=== PATIENT | female | born 1960 | race Caucasian/White ===

== ENCOUNTER 2017-02-12 19:00 | Inpatient (IN) | payer MEDICARE ==
--- NOTE | ~2017-02-12 | PN ---
Unit #: [id number] #: [id number] Patient: NA DE DIOS [id number] [facility] [address] [place] [address] [id number] I MR#: [id number] NAME: NA DE DIOS [facility] Age: 56 Sex: F Admission Date: 02/12/2017 : 1960 Attending Physician: Kendall Padron M.D. Admitting Physician: Kendall Padron M.D. Primary Care Physician: Primary Care Physician Char HERRERA NOTES DATE OF SERVICE: 02/15/2017 DISCUSSION Ms. Na Quinones is a 56-year-old female, seen on 02/15/2017. The patient interviewed, chart reviewed, and obtained information from nursing staff. The patient is compliant and cooperative. Reports medication is helping her. Denied any suicidal or homicidal ideation. Still withdrawn, isolative, guarded. Compliant with medication. No side effects from medication. REVIEW OF SYSTEMS Complete review of systems unremarkable. MENTAL STATUS EXAMINATION General appearance, the patient dressed appropriately. Attention span and concentration, fair. Oriented in time, place, and person. Mood and affect, labile. Speech, regular rate. Thought process, goal directed. The patient denied any thoughts of harming self or others, but guarded, isolative. Recent and remote memory, fair to poor. Insight and judgment, fair to poor. DIAGNOSIS Bipolar mood disorder, recurrent, severe, depressed, F31.9. ASSESSMENT/PLAN Advised to continue with current medication and therapeutic protocol. If needed, consider further adjustment of medication. Dictated by... Mery Castrejon/dee TD: 02/15/2017 23:57 JOB #: [id number] Unit #: [id number] #: [id number] Patient: NA DE DIOS PROGRESS NOTES Page 1 of 1 X Kendall Padron MD PROGRESS NOTE
--- NOTE | ~2017-02-12 | PN ---
Unit #: [id number] #: [id number] Patient: NA DE DIOS [id number] [facility] [address] [place] [address] [id number] I MR#: [id number] NAME: NA DE DIOS ROOM: [facility] Age: 56 Sex: F Admission Date: 02/12/2017 : 1960 Attending Physician: Kendall Padron M.D. Admitting Physician: Kendall Padron M.D. Primary Care Physician: Primary Care Physician Char ANNE PROGRESS NOTES DATE 02/13/2017 DISCUSSION Ms. Na De Dios is a 56-year-old female, seen on 02/13/2017. The patient interviewed, chart reviewed, and obtained information from the nursing staff. The patient was compliant and cooperative. Mood sad and dysphoric, flat affect, sad and depressed, feelings of hopelessness, worthlessness, isolative. REVIEW OF SYSTEMS Complete review of systems unremarkable. MENTAL STATUS EXAMINATION General appearance: Patient dressed casually. Attention span and concentration, poor. Oriented in time, place, and person. Mood and affect, sad and depressed. Speech, monotone. Thought process, concrete. The patient reported having suicidal ideations, anxiety, panic attack. Recent and remote memory, poor. Insight and judgment, poor. DIAGNOSES 1. Major depressive disorder, recurrent. 2. Anxiety disorder, NOS. ASSESSMENT/PLAN Advised to continue with the current medication combination, Lamictal 400 mg daily, Wellbutrin XL 300 mg in the morning, Seroquel 200 mg at bedtime, Klonopin 1 mg three times a day, Vistaril p.r.n., if needed consider further adjustment of medication. Will continue to follow. Dictated by... Mery Castrejon/lebron TD: 02/14/2017 09:35 JOB #: [id number] Unit #: [id number] #: [id number] Patient: NA DE DIOS PROGRESS NOTES Page 1 of 1 X Kendall Padron MD PROGRESS NOTE
--- NOTE | ~2017-02-12 | PA ---
Unit #: [id number] #: [id number] Patient: NA DE DIOS [id number] [place] [address] [id number] I MR#: [id number] NAME: NA DE DIOS ROOM: 64 Age: 56 Sex: F Admission Date: 02/12/2017 : 1960 Date of Assessment: Attending Physician: Kendall Padron M.D. Admitting Physician: Kendall Padron M.D. Primary Care Physician: Primary Care Physician No PSYCHIATRIC ASSESSMENT INFORMANTS The patient reliability, fair informant and chart reliability, good. CHIEF COMPLAINT Depression. HISTORY OF PRESENT ILLNESS Ms. Na Jones is a 56-year-old female, presented with the above-mentioned complaint. The patient is currently followed by Dr. Lua in [facility], referred due to depressed mood, panic attack, suicidal thoughts, plan to cut her wrist. The patient denied any homicidal ideation. Denied any psychotic symptom. The patient carries a diagnosis of major depressive disorder. The patient was unable to contract for safety and had a plan to cut her wrist. The patient reported worsening of her symptoms in the last 2 to 3 weeks. Reports that "I cannot breath, I get confused." The patient denied any homicidal ideation or any psychotic symptom. The patient currently on disability, has 12th grade of education. Lives alone. The patient reported recently brother last year of cancer. Sleeping 12 hours. Decreased appetite. The patient needed inpatient admission at this time for psychiatric stabilization. PAST PSYCHIATRIC HISTORY Remarkable for history of inpatient treatment in 2011. Prior to that, multiple admission and recently followed at [facility] with Dr. Lua. FAMILY HISTORY AND SOCIAL HISTORY The patient has a poor support system. Lives alone. No history of abuse. No history of any substance abuse. MEDICAL HISTORY Unremarkable for any chronic medical illness. Musculoskeletal; muscle strength and tone, no atrophy or abnormal movement. Gait normal. MEDICATION HISTORY The patient is currently on Klonopin 1 mg b.i.d., Wellbutrin 450 mg in the morning, and Seroquel 200 mg at bedtime. ALLERGIES No known drug allergies. SUBSTANCE ABUSE HISTORY Unit #: [id number] #: [id number] Patient: NA DE DIOS None. REVIEW OF SYSTEMS HEENT: Eyes, clear. Ears, nose, mouth, and throat; clear. CARDIOVASCULAR: Unremarkable. RESPIRATORY: Unremarkable. GI: Unremarkable. : Unremarkable. SKIN: Unremarkable. LYMPH NODE: Unremarkable. NEUROLOGIC: Unremarkable. ENDOCRINE: Unremarkable. HEMATOLOGIC: Unremarkable. ALLERGIC/IMMUNOLOGIC: Unremarkable. MUSCULOSKELETAL: Muscle strength and tone, no atrophy or abnormal movement. Gait normal. MENTAL STATUS EXAMINATION CONSTITUTIONAL: Measurement of vital signs; temperature 97.8, heart rate 90, respiratory rate 16, and blood pressure 130/87. Height 5 feet 2 inches and weight 153 pounds. GENERAL APPEARANCE: The patient dressed casually. The patient did not show any facial deformity. MUSCULOSKELETAL: Please see above. PSYCHIATRIC EXAMINATION Description of speech; regular rate, normal volume, normal articulation, and coherent. Description of thought process, goal directed. Description of association, intact. Description of abnormal psychotic thinking; the patient denied any hallucinations or delusions, but mood lability, sad, depressed, suicidal ideation, anxiety, and panic attack. Description of the patient's judgment: Concerning everyday activity, poor. Social situation, poor. Concerning psychiatric condition, poor. Complete mental status examination; oriented in time, place, and person. Recent and remote memory, fair. Attention span and concentration, fair. Language, able to name object and repeat phrases. Fund of knowledge, aware of current event and passive vocabulary intact. Mood and affect, sad and dysphoric. Insight and judgment, fair to poor. ASSETS AND LIABILITIES Assets, the patient is articulate and able to take care of her ADL. Liability; history of depression, anxiety, and suicidal ideation. ADMITTING DIAGNOSES Psychiatric: Major depressive disorder, recurrent, severe, F33.2 and anxiety disorder, not otherwise specified, F40.01. Secondary diagnosis: Deferred. Medical diagnosis: None. Stressors: Psychosocial stressor. PSYCHIATRIC PLAN AND TREATMENT GOAL AND DISCHARGE PLAN 1. Advised to admit the patient on the inpatient unit. Provide safe, supportive, and structured environment. 2. Ordered labs; CBC, CMP, UA, and UDS. Unit #: [id number] #: [id number] Patient: NA DE DIOS 3. Plan to make adjustment in current medication. If needed, consider further adjustment of medication. The patient to attend group therapy, individual therapy, and structured milieu. TREATMENT GOAL To attain euthymic mood, gain insight into her problem, and learn coping skills. DISCHARGE PLAN Plan to stabilize the patient and consider followup in outpatient program. ESTIMATED LENGTH OF STAY 2 weeks. Dictated by... Mery Castrejon/dee TD: 02/13/2017 17:38 JOB #: [id number] PSYCHIATRIC ASSESSMENT Page 1 of 1 X Kendall Padron MD X PSYCHIATRIC ASSESSMENT
--- NOTE | ~2017-02-12 | PN ---
Unit #: [id number] #: [id number] Patient: BRETT DE DIOS [id number] [facility] [address] [place] [address] [id number] I MR#: [id number] NAME: BRETT DE DIOS [facility] Age: 56 Sex: F Admission Date: 02/12/2017 : 1960 Attending Physician: Kendall Padron M.D. Admitting Physician: Kendall Padron M.D. Primary Care Physician: Primary Care Physician Char ANNE PROGRESS NOTES DATE OF SERVICE 02/14/2017 DISCUSSION Ms. Monzon is a 56-year-old female seen on 02/14/2017. The patient interviewed, chart reviewed. Obtained information from nursing staff. The patient compliant, cooperative. Mood sad, dysphoric, anxious, but able to contract for safety. Participating in programming. The patient was continued on same medication, no change. Reports making progress. Denied any thoughts of harming self or others. Complete Review of Systems: Unremarkable. MENTAL STATUS EXAMINATION General Appearance: The patient's hygiene and grooming fair. Attention span, concentration: Fair. Oriented in time, place, and person. Mood and affect labile. Speech: Monotone. Thought process: [place]. The patient denied any thoughts of harming self or others. Recent and remote memory: Poor. Insight and judgment: Poor. DIAGNOSIS Bipolar mood disorder not otherwise specified. ASSESSMENT/PLAN Advised to continue with current combination of Klonopin, Wellbutrin, Seroquel, and Lamictal. If needed, consider further adjustment of medication. Advised to change Lamictal to 200 mg b.i.d. with plan to stabilize the patient and consider followup in adult outpatient program. Dictated by... Mery Castrejon/gorge TD: 02/15/2017 07:49 JOB #: [id number] Unit #: [id number] #: [id number] Patient: BRETT DE DIOS PROGRESS NOTES Page 1 of 1 X Kendall Padron MD PROGRESS NOTE
--- NOTE | ~2017-02-12 | PA ---
Unit #: [id number] #: [id number] Patient: BRETT DE DIOS [id number] [facility] [address] [place] [address] [id number] I MR#: [id number] NAME: BRETT DE DIOS ROOM: P264 Age: 56 Sex: F Admission Date: 02/12/2017 : 1960 Date of Assessment: Attending Physician: Kendall Padron M.D. Admitting Physician: Kendall Padron M.D. Primary Care Physician: Primary Care Physician No PSYCHIATRIC ASSESSMENT DATE OF SERVICE 02/13/2017. IDENTIFYING DATA Ms. De Dios is a 56-year-old, single, disabled white female, who is a resident of [place], [place], and was referred here by her outpatient psychiatrist to the hospital on a voluntary basis. CHIEF COMPLAINT "Suicidal ideation, my plan is to cut my wrist." HISTORY OF PRESENT ILLNESS Ms. De Dios is a 56-year-old white female with a history of mood disorder, who was referred by her psychiatrist due to increasing depression, suicidal ideation, and plan to cut her wrist and reports that she started to give her property away. "I just want to leave and not return. I'm stressed out over conflicts with my friends and family." The patient also reports having panic attacks about 2 to 3 times a week and last one was today and "I can't breathe, I get confused and I'm lost when I have them." The patient does report increasing depression, anxiety, feelings of hopelessness and helplessness, and suicidal ideations and as such, recommendation for inpatient level of care for safety and stabilization was made and the patient was transferred to us. SUBSTANCE ABUSE HISTORY The patient denies any alcohol or drug abuse. PAST PSYCHIATRIC HISTORY The patient has had ongoing outpatient psychiatric treatment with Dr. Lua and has been diagnosed and treated for mood disorder. Review of the medical records indicate that currently she is on a combination of Seroquel, Lamictal, Wellbutrin and Klonopin. PAST MEDICAL HISTORY Insignificant. ALLERGIES Dilaudid and ciprofloxacin. PERSONAL AND SOCIAL HISTORY A 56-year-old white female, who reports that she is single, disabled, and lives alone and has poor social support system. Unit #: [id number] #: [id number] Patient: BRETT DE DIOS MENTAL STATUS EXAMINATION Middle-aged white female, who was casually dressed with fair personal hygiene, appears to be in no acute distress or discomfort. She was awake and alert on interaction with intact orientation. Her mood was anxious and depressed with a congruent affect. Her speech was slow and restricted in content. Her thought processes were disorganized with some looseness of associations and flight of ideas. Her insight and judgment remain significantly impaired. DIAGNOSTIC IMPRESSION Psychiatric: Bipolar disorder, most recent episode depressed, recurrent, moderate, without psychotic features. Medical: None. Stressors: Moderate psychosocial stressors. TREATMENT PLAN 1. The patient has presented with a history of mood disorder, and has been decompensating and will need inpatient hospitalization for safety and stabilization. We will start her back on her home medications. We will adjust the medications and monitor response. 2. Supportive therapy was provided to the patient. ESTIMATED LENGTH OF STAY 5 to 7 days. ABILITY TO HELP SELF Limited. WILLINGNESS TO HELP SELF The patient appears to be willing to help self. STRENGTHS 1. Communicative. 2. Cooperative. PROBLEMS 1. Chronic dysphoric symptoms. 2. Poor social support system. DISCHARGE CRITERIA This will be contingent upon the patient's ability to show resolution of her depression and anxiety and her ability to stay safe to herself, particularly after discharge from the hospital. Dictated by... Mery Chester/dee TD: 02/13/2017 08:12 JOB #: [id number] Unit #: [id number] #: [id number] Patient: BRETT DE DIOS PSYCHIATRIC ASSESSMENT Page 1 of 1 X Yajaira Cornelius MD X PSYCHIATRIC ASSESSMENT
--- NOTE | ~2017-02-12 | DS ---
Unit #: [id number] #: [id number] Patient: BRETT DE DIOS [id number] [facility] [address] [place] [address] [id number] MR#: [id number] NAME: BRETT DE DIOS ROOM: [facility] Age: 56 Sex: F Admission Date: 02/12/2017 : 1960 Discharge Date: 02/15/2017 Attending Physician: Kendall Padron M.D. DISCHARGE SUMMARY REASON FOR ADMISSION Depression. DIAGNOSTIC STUDIES LABORATORY RESULTS: Unremarkable. HOSPITAL COURSE The patient was admitted to inpatient unit on 02/12/2017 and discharged on 02/15/2017. The patient was treated with group therapy, individual therapy, medication management. The patient was responsive to treatment, showed improvement. Subsequently, the patient was discharged with a plan to follow up in outpatient program. DISCHARGE MEDICATIONS Klonopin 1 mg t.i.d. for anxiety, no prescription given. Wellbutrin XL 300 mg in the morning for depression, Seroquel 200 mg at bedtime for mood stabilization, Zocor 40 mg daily for high cholesterol, and Lamictal 200 mg b.i.d. for mood stabilization. DISCHARGE DIAGNOSES Psychiatric: Major depressive disorder, recurrent, severe, F33.2; rule out bipolar mood disorder; anxiety disorder, not otherwise specified, F40.01. Secondary diagnosis: Deferred. Medical diagnosis: Hypercholesterolemia, obesity, obstructive sleep apnea, restless legs syndrome, hypertension, history of cervical dysplasia, hyperlipidemia. Stressors: Psychosocial stressors. DISCHARGE INSTRUCTIONS The patient to follow up in outpatient clinic as per clinical social worker. CONDITION ON DISCHARGE The patient was pleasant and cooperative. Denied any psychotic symptom or any suicidal ideation. PROGNOSIS Guarded. DIET AND ACTIVITY Unit #: [id number] #: [id number] Patient: BRETT DE DIOS As tolerated. Dictated by... Kendall Padron M.D. SZC/paulol TD: 02/20/2017 16:44 JOB #: [id number] DISCHARGE SUMMARY Page 1 of 1 X Kednall Padron MD DISCHARGE SUMMARY
--- NOTE | ~2017-02-12 | HP ---
Unit #: [id number] #: [id number] Patient: NA DE DIOS [id number] [place] [address] [id number] MR#: [id number] NAME: NA DE DIOS ROOM: P264 Age: 56 Sex: F Admission Date: 02/12/2017 : 1960 Attending Physician: Kendall Padron M.D. Admitting Physician: Kendall Padron M.D. Primary Care Physician: Primary Care Physician No HISTORY AND PHYSICAL HISTORY OF PRESENT ILLNESS Na is a 56 year old admitted to [address] [place] [address] with depression and verbalizing wanting to hurt herself. PAST MEDICAL HISTORY 1. Obesity 2. Obstructive sleep apnea 3. Restless leg syndrome 4. High blood pressure 5. History of cervical dysplasia 6. Hyperlipidemia PAST SURGICAL HISTORY Cervical ablation ALLERGIES Cipro SOCIAL HISTORY She denies cigarettes, alcohol or illicit drug use. FAMILY HISTORY Medically noncontributory. REVIEW OF SYSTEMS CONSTITUTIONAL: No fever or chills. HEENT: Denies any sore throat, ear pain or runny nose. CARDIOVASCULAR: Denies chest pain, irregular heart rhythm or palpitations. CHEST: Denies shortness of breath or cough. No hemoptysis. GASTROINTESTINAL: Denies nausea, vomiting, diarrhea or chronic constipation. ENDOCRINE: Denies history of increased thirst or urination. No recent significant weight loss or gain. GENITOURINARY: Denies dysuria, frequency, or hematuria. SKIN: Denies any rashes. HEMATOLOGIC: Denies history of increased bleeding or bruising. MUSCULOSKELETAL: Denies any hot, swollen joints. No generalized muscle pain. NEUROLOGIC: Denies problems with vision or speech. No frequent, severe headaches. No numbness, tingling or weakness in any extremities. Denies loss of bladder or bowel control. Unit #: [id number] #: [id number] Patient: NA DE DIOS CURRENT MEDICATIONS 1. Lamictal 400 mg q day 2. Wellbutrin XL 300 mg q.a.m. 3. Milk of Magnesia p.r.n. 4. Maalox p.r.n. 5. Tylenol p.r.n. 6. Zocor 40 mg q day 7. Seroquel 200 mg q h.s. 8. Klonopin 1 mg t.i.d. 9. Vistaril p.r.n. PHYSICAL EXAMINATION GENERAL: Alert, obese, in no apparent distress. VITAL SIGNS: Blood pressure 130/86, heart rate 80, respirations 16, temperature 98.6. WEIGHT: 153 pounds. HEIGHT: 5'2". SKIN: Warm and dry without rash or lesion. HEENT: Normocephalic. TMs not viewed. Oral and nasal passages clear. Conjunctivae clear. Pupils equal, round and reactive to light and accommodation. Extraocular movements intact. NECK: Supple without lymphadenopathy or thyromegaly. HEART: Regular rate and rhythm without murmur. LUNGS: Clear. ABDOMEN: Soft, nontender. : Not done. EXTREMITIES: No evidence of cyanosis, clubbing or edema. Moves all extremities without focal deficit. NEUROLOGICAL: Grossly within normal limits. Cranial Nerves: II: Visual veliz are intact. III, IV AND : Extraocular movements are intact. Pupils are equal, round and reactive to light. V: Facial sensation is grossly normal. VII: Facial movements and expression are normal. VIII: Auditory acuity grossly intact. IX, X: Uvula is midline. Phonation is normal. XI: Patient shrugs shoulders and turns head normally. XII: Tongue protrudes in the midline. Sensory and Motor Function: Sensory and motor sensation is grossly normal. Motor: moves all extremities well. Coordination: Gait is normal. Deep Tendon Reflexes: Intact. IMPRESSION Psychiatric admission RECOMMENDATIONS PSYCHIATRIC: Per psychiatrist. MEDICAL: I see no contraindications to participating in facility's activities. MEDICAL PROGNOSIS Good. MEDICAL CONDITION Stable. Unit #: [id number] #: [id number] Patient: NA DE DIOS Dictated by... Eva Engle P.A.-C. for Mery Whittaker/ambrose TD: 02/13/2017 21:02 JOB #: [id number] HISTORY AND PHYSICAL Page 1 of 1 X Eva Engle HISTORY AND PHYSICAL
[~2017-02-12 19:00] MED LIST: ALEVE; ALPRAZOLAM; EFFEXOR XR PO; LAMICTAL PO; REQUIP1 MG PO; TRAZODONE PO
[2017-02-13 09:34] LABS: BASOPHIL% 0.5 % (0-2.5); EOSINOPHIL# 0.3 X10e3 (0-0.7); EOSINOPHIL% 6.9 % (0.0-7.0); HEMATOCRIT 43.1 % (35.0-45.0); HEMOGLOBIN 14.1 gm/dL (12.0-16.0); LYMPHOCYTE% 43.1 % (17.0-45.0); MEAN CELL VOLUME 94.5 FL (83-96); MEAN CORPUSCULAR HEMOGLOBIN 30.8 PG (28-34); MEAN CORPUSCULAR HGB CONC 32.6 g/dL (30-36); MEAN PLATELET VOLUME 8.7 FL (6.5-11.5); MONOCYTE# 0.5 X10e3 (0-1.0); MONOCYTE% 10.5 % (3.0-12.0); NEUTROPHIL# 1.8 X10e3 (1.5-7.1); PLATELET COUNT 175 X10e3 (140-420); RED BLOOD COUNT 4.56 X10e (3.90-5.30); RED CELL DISTRIBUTION WIDTH 13.6 % (11.0-15.5); WHITE BLOOD COUNT 4.6 X10e3 (4.0-10.5)
[2017-02-13 09:57] LABS: DIFF IND NO
[2017-02-13 10:19] LABS: ALBUMIN SERUM 3.8 g/dL (3.5-5.0); BILIRUBIN,TOTAL 0.9 mg/dL (0.2-2.0); BUN/CREATININE RATIO 16.66; CALCIUM SERUM 9.3 mg/dL (8.4-10.2); CREATININE SERUM 0.9 mg/dL (0.6-1.4); GLOM FILT RATE Estimated 71.5 mL/min (>60); POTASSIUM 3.7 mmol/L (3.5-5.1); PROTEIN TOTAL SERUM 5.9 g/dL (6.0-8.3)
[2017-02-13 12:31] LABS: URINE APPEARANCE CLEAR; URINE BILIRUBIN NEG (NEG); URINE BLOOD NEG (NEG); URINE COLOR YELLOW; URINE GLUCOSE NEG (NEG); URINE KETONE NEG (NEG); URINE LEUKOCYTE ESTERASE 1+ (NEG); URINE NITRATE NEG (NEG); URINE PROTEIN NEG (NEG); URINE SPECIFIC GRAVITY 1.016 (1.003-1.035); URINE UROBILINOGEN 0.2 MG/DL (NEG)
[2017-02-13 12:34] LABS: URBCS1 AUWI 0-2 /[HPF] (0-2); URINE BACTERIA AUWI NEG (NEGATIVE); URINE SQUAMOUS EPITHELIAL CELL NONE SEEN /[HPF]
[2017-02-13 12:43] LABS: AMPHETAMINE NEG (NEG); BARBITURATES NEG (NEG); BENZODIAZEPINES POS (NEG); COCAINE NEG (NEG); MARIJUANA NEG (NEG); OPIATES NEG (NEG); TRICYCLIC ANTIDEPRESSANTS POS (NEG); U METHADONE NEG (NEG)
== END 2017-02-15 13:30 | disposition home or self-care (01) | DRG 885 ==
LOC: P2L 20:52
PROVIDERS: Psychiatry & Neurology Psychiatry
DX: F31.4 Bipolar disorder, current episode depressed, severe, without psychotic features (principal); I10 Essential (primary) hypertension; F41.9 Anxiety disorder, unspecified; E66.9 Obesity, unspecified; G47.33 Obstructive sleep apnea (adult) (pediatric); G25.81 Restless legs syndrome; E78.5 Hyperlipidemia, unspecified
CPT/HCPCS: 80053; 80307; 81003; 85025